=== PATIENT | female | born 1965 | race Caucasian/White ===

== ENCOUNTER → 2018-05-11 14:52 | Outpatient (CLI) | payer OTHER, SELFPAY ==
[2018-05-15 13:57] LABS: HPV Reflexed? NOT INDICATED
== END ==
PROVIDERS: Visit Provider Obstetrics & Gynecology
DX: Z12.4 Encounter for screening for malignant neoplasm of cervix (principal)
CPT/HCPCS: 88175; G0145

== ENCOUNTER → 2018-06-15 10:32 | Outpatient (CLI) | payer OTHER, SELFPAY ==
--- NOTE | 2018-06-15 | BRBX_PTH ---
PATIENT: FERNANDO VILLEGAS LOC: [facility] U#:[id number] AGE/SX: 59/F ROOM: RE06/15/[address]: Dr. Cody Faustin MD : [id number] BED: DIS: SPEC #: [id number] RECD: 06/15/18 11:29 STATUS: WILIAN RIA #: [id number] GENEVIEVE: 06/15/18 00:[address]: Cody Faustin DEPT: SURGICAL PATHOLOGY RECD BY: Shahriar Hernandez ENTERED: 06/15/18 11:30 SP TYPE: BREAST BX OTHR DR: Dr. Carolyn Patel MD Tissues: Left breast, NOS Procedures: Surgery Specimen Level IV HEADER OPERATION: Ultrasound-guided needle core biopsy left breast PRE-OP DIAGNOSIS: Abnormal mammogram left breast TISSUE SUBMITTED: Left breast tissue ISCHEMIC TIME: 1 minute MICROSCOPIC DIAGNOSIS Left breast tissue, ultrasound-guided needle core biopsy: Fibroadenoma. Negative for atypia or malignancy. SJ:cary 06/16/18 COMMENT Correlation with clinical, radiologic findings and appropriate follow up are necessary. MICROSCOPIC DESCRIPTION Slides are reviewed. GROSS DESCRIPTION Received in fixative is one container labeled with the patient's name and designated left breast biopsy. The specimen consists of multiple elongated fragments of mendieta-yellow fibroadipose tissue that in aggregate measure 1.2 x 0.3 x 0.1 cm. The entire specimen is submitted in one cassette. / SAMIA:cary 06/15/18 TC:1 CPT: 37816
== END ==
PROVIDERS: Visit Provider Surgery
DX: R92.8 Other abnormal and inconclusive findings on diagnostic imaging of breast (principal)
CPT/HCPCS: 88305

== ENCOUNTER → 2019-06-07 14:03 | Outpatient (CLI) | payer OTHER, SELFPAY | PROVIDERS: Visit Provider Obstetrics & Gynecology | DX: Z12.4 Encounter for screening for malignant neoplasm of cervix (principal) ==